=== PATIENT | female | born 1950 | race Caucasian/White ===

== ENCOUNTER 2022-01-08 08:30 | Outpatient (RCR) | payer MEDICARE, SELFPAY ==
--- NOTE | 2021-12-06 07:54 | HP.PTEVAL_ITS ---
Patient's Visit Information CRYSTAL STEPHENS is a 71 year old F referred to Physical Therapy by Dr. Jj Schilling MD with a diagnosis of RIGHT SHLD PAIN. Date of Evaluation: 12/06/21 Physical Therapist: Jamee Handley PT, Cert MDT - Visit Plan Frequency: 2-3x /Week Duration: 4-6 Weeks Plan: RIGHT SHLD US X 6, POSTURE CORRECTION/STRENGTHENING, INSTRUCTION IN APPROPRIATE BODY MECHANICS AND ACTIVITY MODIFICATIONS. TRISH UE ROM, STRETCHING AND STRENGTHENING. 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 SITTING. NO HEAVY LIFTING, PUSHING OR PULLING. Disability: NO. Present symptoms: RIGHT SHLD AND UPPER ARM PAIN. TRISH HAND NUMBNESS AND TINGLING (CHRONIC - TRISH CTR'S). Present since: ABOUT 2 YEARS AGO. Pain Scale: Worst - 9/10 Least - /10. Currently: 07/15. Commenced as a result of: NO APPARENT REASON. Symptoms at onset: R SHLD PAIN. Worse: PULLING PANTS UP AND DOWN, REACHING BACK TO TIE APRON AT WORK, PUTTING BRA ON, ANYTIME I HAVE TO MOVE IT MUCH. Better: HEAT, NAPROSYN. Disturbed sleep: YES. Previous history/Previous treatment: NO R SHLD SX, NO R SHLD INJECTIONS, NO CHIRO AND NO PT. Dizziness: NO. Tinnitis: YES - CHRONIC. Nausea: NO. Shortness of Breath: NO. Difficulty Swollowing: NO. Gait: LAST COUPLE OF YEARS HAS FALLEN A FEW TIMES. REPORTS SHE HAS ALWAYS BEEN CLUMSY. PATIENT REPORTS SHE GETS OFF BALANCE EASILY. Accidents: SOME FALLS. NO FX'S. Unexplained weight loss: NO. Imaging: RECENT R SHLD X-RAY SHOWING TO ARTHRITIS PER PATIENT REPORT. PMH/Recent major surgery: HIGH CHOLESTEROL, DEPRRESSION, TRISH KNEE REPLACEMENTS, TRISH CTR'S, RIGHT TRIGGER RELEASE ELBOW LONG TIME AGO, RUPTURED ACHILES TENDON - Objective Sitting Posture/Standing Posture: POOR. FH. RS'S. Active Correction of posture: NE. Other Observations: INDEP ATAXIC GAIT INTO PT WITHOUT ANY AD'S. INDEP TRANSFERS. Sensory deficit: TRISH UE LIGHT TOUCH SENSATION GROSSLY INTACT AND SYMMETRICAL EXCEPT HANDS. ROM deficit: LEFT UE WFL. RIGHT SHLD ROM IS ACTUALLY WFL ALL PLANES BUT TESTING IS PAINFUL THROUGH RANGE AND AT THE END RANGE. 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 LEFT SHLD 4/5 EXCEPT ABD 4-/5. OTHERWISE L UE IS 5/5. RIGHT SHLD 3+/5, ELBOW 5/5. Dural Signs: NEGATIVE TRISH UE'S. Cervical Mvmt Loss: Flex: NIL. Pro: NIL. Ext: MIN. Ret: DM. RSB: MOD. LSB: MOD. R Rot: MOD. L Rot: MIIN. PATIENT DENIES PAIN WITH CERVICAL ROM TESTING. Postural strength: POOR. Palpation: NO ACUTE CERVICAL OR SHLD TENDERNESS. TREATMENT: NEUROMUSCULAR REEDUCATION - RETRAINING OF MVMT AND POSTURE FOR SITTING, LYING AND STANDING ACTIVITIES. - Balance/Special Test Scores Quick DASH Score: 40.9075 - Goals Goal 1:: DECREASE C/O R SHLD PAIN Goal Time Frame: 4-6 Weeks Goal 2:: IMPROVE RIGHT UE FUNCTIONAL STRENGTH TO EASE ADL'S. Goal Time Frame: 4-6 Weeks Goal 3:: INSTRUCT IN PROPHYLAXIS Goal Time Frame: 4-6 Weeks - Anticipated Interventions Patient/Client Instruction: Educate patient on: Condition, Plan of Care, Risk Factors For the Purpose of:: To improve self management Therapeutic Exercise to Include: Strength training, Body mechanics, Postural training, Flexibilty training, Neuromotor development, Scapular Strength/Stabilization For the Purpose of:: To decrease pain, To increase ROM, To improve muscle performance and motor function, To increase tolerance to activity/condition/position, To improve ability of physical actions for home/community/work/leisure Cryotherapy (ice pack, ice massage): Yes Thermo therapy (hot pack): Yes Ultrasound (thermal/non thermal): Yes For the Purpose of:: To decrease pain, To improve nutrient delivery to tissue Thank you for the opportunity to evaluate your patient. For Medicare and Medicare HMO plans, please review the plan of care and approve it. It will need to be FAXED BACK to us at [phone] for Medicare purposes. For Medicare only, by signing this I certify the plan of care. Please let me know if there are questions or concerns regarding this plan of care. Physician Signature: Date:
--- NOTE | 2021-12-16 08:53 | HP.PTEVAL ---
Patient's Visit Information CRYSTAL STEPHENS is a 71 year old F referred to Physical Therapy by Dr. Jj Schilling MD with a diagnosis of RIGHT SHLD PAIN. Date of Evaluation: 12/06/21 Physical Therapist: Pedro Florez, AUNDREAT, OCS, CSCS - Visit Plan Frequency: 2-3x /Week Duration: 4-6 Weeks Plan: RIGHT SHLD US X 6, POSTURE CORRECTION/STRENGTHENING, INSTRUCTION IN APPROPRIATE BODY MECHANICS AND ACTIVITY MODIFICATIONS. TRISH UE ROM, STRETCHING AND STRENGTHENING. 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 SITTING. NO HEAVY LIFTING, PUSHING OR PULLING. Disability: NO. Present symptoms: RIGHT SHLD AND UPPER ARM PAIN. TRISH HAND NUMBNESS AND TINGLING (CHRONIC - [facility]'S). Present since: ABOUT 2 YEARS AGO. Pain Scale: Worst - 9/10 Least - /10. Currently: 07/15. Commenced as a result of: NO APPARENT REASON. Symptoms at onset: R SHLD PAIN. Worse: PULLING PANTS UP AND DOWN, REACHING BACK TO TIE APRON AT WORK, PUTTING BRA ON, ANYTIME I HAVE TO MOVE IT MUCH. Better: HEAT, NAPROSYN. Disturbed sleep: YES. Previous history/Previous treatment: NO R SHLD SX, NO R SHLD INJECTIONS, NO CHIRO AND NO PT. Dizziness: NO. Tinnitis: YES - CHRONIC. Nausea: NO. Shortness of Breath: NO. Difficulty Swollowing: NO. Gait: LAST COUPLE OF YEARS HAS FALLEN A FEW TIMES. REPORTS SHE HAS ALWAYS BEEN CLUMSY. PATIENT REPORTS SHE GETS OFF BALANCE EASILY. Accidents: SOME FALLS. NO FX'S. Unexplained weight loss: NO. Imaging: RECENT R SHLD X-RAY SHOWING TO ARTHRITIS PER PATIENT REPORT. PMH/Recent major surgery: HIGH CHOLESTEROL, DEPRRESSION, TRISH KNEE REPLACEMENTS, TRISH CTR'S, RIGHT TRIGGER RELEASE ELBOW LONG TIME AGO, RUPTURED ACHILES TENDON - Pain Right Shoulder Pain Intensity (Out of 10): 3 - Objective Sitting Posture/Standing Posture: POOR. FH. RS'S. Active Correction of posture: NE. Other Observations: INDEP ATAXIC GAIT INTO PT WITHOUT ANY AD'S. INDEP TRANSFERS. Sensory deficit: TRISH UE LIGHT TOUCH SENSATION GROSSLY INTACT AND SYMMETRICAL EXCEPT HANDS. ROM deficit: LEFT UE WFL. RIGHT SHLD ROM IS ACTUALLY WFL ALL PLANES BUT TESTING IS PAINFUL THROUGH RANGE AND AT THE END RANGE. 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 LEFT SHLD 4/5 EXCEPT ABD 4-/5. OTHERWISE L UE IS 5/5. RIGHT SHLD 3+/5, ELBOW 5/5. Dural Signs: NEGATIVE TRISH UE'S. Cervical Mvmt Loss: Flex: NIL. Pro: NIL. Ext: MIN. Ret: DM. RSB: MOD. LSB: MOD. R Rot: MOD. L Rot: MIIN. PATIENT DENIES PAIN WITH CERVICAL ROM TESTING. Postural strength: POOR. Palpation: NO ACUTE CERVICAL OR SHLD TENDERNESS. TREATMENT: NEUROMUSCULAR REEDUCATION - RETRAINING OF MVMT AND POSTURE FOR SITTING, LYING AND STANDING ACTIVITIES. - Balance/Special Test Scores Lower Extremity Functional Score: 47 Quick DASH Score: 40.9075 - Goals Goal 1:: DECREASE C/O R SHLD PAIN Goal Time Frame: 4-6 Weeks Goal 2:: IMPROVE RIGHT UE FUNCTIONAL STRENGTH TO EASE ADL'S. Goal Time Frame: 4-6 Weeks Goal 3:: INSTRUCT IN PROPHYLAXIS Goal Time Frame: 4-6 Weeks - Anticipated Interventions Patient/Client Instruction: Educate patient on: Condition, Plan of Care, Risk Factors For the Purpose of:: To improve self management Therapeutic Exercise to Include: Strength training, Body mechanics, Postural training, Flexibilty training, Neuromotor development, Scapular Strength/Stabilization For the Purpose of:: To decrease pain, To increase ROM, To improve muscle performance and motor function, To increase tolerance to activity/condition/position, To improve ability of physical actions for home/community/work/leisure Cryotherapy (ice pack, ice massage): Yes Thermo therapy (hot pack): Yes Ultrasound (thermal/non thermal): Yes For the Purpose of:: To decrease pain, To improve nutrient delivery to tissue Thank you for the opportunity to evaluate your patient. For Medicare and Medicare HMO plans, please review the plan of care and approve it. It will need to be FAXED BACK to us at [phone] for Medicare purposes. For Medicare only, by signing this I certify the plan of care. Please let me know if there are questions or concerns regarding this plan of care. Physician Signature: Date:
--- NOTE | 2022-01-01 10:59 | HP.PTDCSUM_ITS ---
It has been my pleasure to treat CRYSTAL STEPHENS referred by Dr. Jj Schilling MD, with the diagnosis of RIGHT SHLD PAIN for a total of 9 visit(s). Discharge Date: Please see the following information for a summary of their discharge status. Subjective: PATIENT REPORTS HER SHLD IS ABOUT 50% BETTER AND SHE FEELS IF SHE CONTINUES HER HEP AND HEAT SHE WILL CONTINUE TO IMPROVE. PATIENT REPORTS SHE USE TO HAVE CONSTANT PAIN BUT TYPICALLY NO PAIN AT REST NOW. SHE REPORTS INCREASED PAINFREE ROM NOW BUT STILL GETS PAIN IF SHE GOES TOO FAR. THE HEAT AND THE EX'S ARE HELPING A LOT. LESS PAIN PULLING PANTS UP. EASIER TO TIE APRON IN THE BACK NOW TOO. Right Shoulder Pain Intensity (Out of 10): 1 % Improvement: 50 Objective/Function: PATIENT WAS SEEN TODAY FOR RE-ASSESSMENT OF PROGRESS TOWARD THE SET PT GOALS AND THE NEED FOR FURTHER PHYSICAL THERAPY VS READINESS FOR D ISCHARGE. UPON EXAM TODAY: ROM deficit: LEFT UE WFL. RIGHT SHLD ROM IS ACTUALLY WFL ALL PLANES BUT TESTING IS PAINFUL THROUGH RANGE AND AT THE END RANGE. Motor deficit: LEFT SHLD 4/5 EXCEPT ABD 4-/5. OTHERWISE L UE IS 5/5. RIGHT SHLD 3+/5, ELBOW 5/5. Goal 1:: DECREASE C/O R SHLD PAIN Goal Progress: Goal Met Goal 2:: IMPROVE RIGHT UE FUNCTIONAL STRENGTH TO EASE ADL'S. Goal Progress: Goal Met Goal 3:: INSTRUCT IN PROPHYLAXIS Goal Progress: Goal Met Plan: D/C TO HEP. PATIENT AGREEABLE. If there are questions or concerns regarding this patient's physical therapy, please feel free to call me at [phone]. Thank you for the referral of this patient. Sincerely, Jamee Handley, PT, Cert MDT Balance/Gait/Functional tests - Balance/Special Test Scores Lower Extremity Functional Score: 47 Quick DASH Score: 15.9075
--- NOTE | 2022-01-08 08:59 | HP.PTDCSUM_ITS ---
It has been my pleasure to treat CRYSTAL STEPHENS referred by Dr. Jj Schilling MD, with the diagnosis of RIGHT SHLD PAIN for a total of 9 visit(s). Discharge Date: Please see the following information for a summary of their discharge status. Subjective: PATIENT REPORTS HER SHLD IS ABOUT 50% BETTER AND SHE FEELS IF SHE CONTINUES HER HEP AND HEAT SHE WILL CONTINUE TO IMPROVE. PATIENT REPORTS SHE USE TO HAVE CONSTANT PAIN BUT TYPICALLY NO PAIN AT REST NOW. SHE REPORTS INCREASED PAINFREE ROM NOW BUT STILL GETS PAIN IF SHE GOES TOO FAR. THE HEAT AND THE EX'S ARE HELPING A LOT. LESS PAIN PULLING PANTS UP. EASIER TO TIE APRON IN THE BACK NOW TOO. Right Shoulder Pain Intensity (Out of 10): 1 % Improvement: 50 Objective/Function: PATIENT WAS SEEN TODAY FOR RE-ASSESSMENT OF PROGRESS TOWARD THE SET PT GOALS AND THE NEED FOR FURTHER PHYSICAL THERAPY VS READINESS FOR D ISCHARGE. UPON EXAM TODAY: ROM deficit: LEFT UE WFL. RIGHT SHLD ROM IS ACTUALLY WFL ALL PLANES BUT TESTING IS PAINFUL THROUGH RANGE AND AT THE END RANGE. Motor deficit: LEFT SHLD 4/5 EXCEPT ABD 4-/5. OTHERWISE L UE IS 5/5. RIGHT SHLD 3+/5, ELBOW 5/5. Goal 1:: DECREASE C/O R SHLD PAIN Goal Progress: Goal Met Goal 2:: IMPROVE RIGHT UE FUNCTIONAL STRENGTH TO EASE ADL'S. Goal Progress: Goal Met Goal 3:: INSTRUCT IN PROPHYLAXIS Goal Progress: Goal Met Plan: D/C TO HEP. PATIENT AGREEABLE. If there are questions or concerns regarding this patient's physical therapy, please feel free to call me at [phone]. Thank you for the referral of this patient. Sincerely, Pedro Florez, DPT, OCS, CSCS Balance/Gait/Functional tests - Balance/Special Test Scores Lower Extremity Functional Score: 47 Quick DASH Score: 15.9075
== END 2022-01-08 13:46 | disposition home or self-care (01) ==
LOC: PT 08:30
PROVIDERS: PCP Family Medicine; Referring Provider Family Medicine; Visit Provider Family Medicine
DX: R27.9 Unspecified lack of coordination (principal)
CPT/HCPCS: 97035; 97110; 97112; 97140; 97162; 97164; 97530